=== PATIENT | female | born 1970 | race Caucasian/White ===

== ENCOUNTER 2020-09-04 14:16 | Emergency (ER) | payer BC, OTHER ==
[~2020-09-04] VITALS: Ht 167.6 cm; Wt 80.7 kg
[~2020-09-04 14:16] MED LIST: Carisoprodol PO; Cholecalciferol PO
[2020-09-04 15:33] VITALS: BP 125/77
[2020-09-04] MEDS ORDERED: METHOCARBAMOL 500 MG TAB PO ONE (15:45)
[2020-09-04 16:57] LABS: Urine WBC None Seen /hpf (0 - 5)
[2020-09-04 17:03] LABS: Urine Bacteria NONE SEEN /hpf (None Seen); Urine Blood Negative /uL (Negative); Urine Specific Gravity 1.018 (1.001-1.035)
[2020-09-04] MEDS ORDERED: KETOROLAC TROMETH 60MG/2ML VIAL IM ONE (17:15)
[2020-09-04 17:21] LABS: Basophils # (auto) 0 10 ^3/uL (0-0.2); Basophils % (auto) 0.6 % (0.0-2.0); Eosinophils # (auto) 0.2 10 ^3/uL (0-0.8); Eosinophils % (auto) 2.7 % (0.0-7.0); Hematocrit 37.5 % (36.0-46.0); Hemoglobin 13.1 g/dL (12.2-16.2); Lymphocytes # (auto) 2.3 10 ^3/uL (0.4-5.4); Lymphocytes % (auto) 29.4 % (10.0-50.0); Mean Corpuscular Hemoglobin 31.6 pg (28.0-32.0); Mean Corpuscular Hgb Conc. 34.8 g/dL (32.0-36.0); Mean Corpuscular Volume 90.8 fL (80.0-100.0); Monocytes # (auto) 0.6 10 ^3/uL (0-1.3); Monocytes % (auto) 7.2 % (0.0-12.0); Neutrophils # (auto) 4.7 10 ^3/uL (1.6-8.6); Neutrophils % (auto) 60.1 % (37.0-80.0); Nucleated Red Blood Cells % 0.1 %; Platelet Count (auto) 268 10^3/uL (140-450); Red Blood Cells 4.13 10^6/uL (4.0-5.20); Red Cell Distribution Width 12.6 % (11.8-14.3); White Blood Cell 7.8 10^3/uL (4.4-10.8)
[2020-09-04 17:40] LABS: Albumin 3.5 g/dL (3.4-5.0); Calcium 8.7 mg/dL (8.5-10.1)
[2020-09-04 17:43] LABS: BUN/Creatinine Ratio 16.2
[2020-09-04 17:45] LABS: Bilirubin, Total 0.4 mg/dL (0.2-1.0); Total Protein 7.4 g/dL (6.4-8.2)
== END 2020-09-04 16:32 | disposition home or self-care (01) ==
LOC: ER 14:16
DX: M54.16 Radiculopathy, lumbar region (principal); Z90.710 Acquired absence of both cervix and uterus; Z88.0 Allergy status to penicillin; Z88.1 Allergy status to other antibiotic agents; Z88.8 Allergy status to other drugs, medicaments and biological substances; Z91.041 Radiographic dye allergy status; Z79.899 Other long term (current) drug therapy
CPT/HCPCS: 36415; 74176; 80053; 81001; 85025; 96372; 99284; J1885; 81002

== ENCOUNTER 2021-06-21 11:23 | Emergency (ER) | payer OTHER ==
[~2021-06-21] VITALS: Ht 167.6 cm; Wt 80.3 kg
[2021-06-21 11:59] VITALS: BP 141/91
[2021-06-21] MEDS ORDERED: KETOROLAC TROMETH 60MG/2ML VIAL IM ONE (12:15)
[2021-06-21] MEDS ORDERED: PRED20TA2 PO (12:51)
[2021-06-21] MEDS ORDERED: TRAM-297 PO (12:51)
== END 2021-06-21 12:56 | disposition home or self-care (01) ==
LOC: EDUNIT# 11:23 → ER 11:23
DX: M50.10 Cervical disc disorder with radiculopathy, unspecified cervical region (principal); Z90.710 Acquired absence of both cervix and uterus; Z98.51 Tubal ligation status; Z88.0 Allergy status to penicillin; Z88.2 Allergy status to sulfonamides; Z88.6 Allergy status to analgesic agent
CPT/HCPCS: 72040; 96372; 99283; J1885

== ENCOUNTER 2023-10-31 19:29 | Emergency (ER) | payer OTHER ==
[~2023-10-31] VITALS: Ht 167.6 cm; Wt 91.5 kg
[~2023-10-31 19:29] MED LIST changes: +PRED20TA2 PO; +TRAM-297 PO
[2023-10-31 21:54] VITALS: BP 147/85; PULSE 75; RESP 16; TEMP 97.8; O2SAT 98
[2023-10-31] MEDS: KETOROLAC TROMETH 60MG/2ML VIAL IM ONE (22:04)
[2023-10-31] MEDS ORDERED: IBUP-1456 PO (22:22)
== END 2023-10-31 23:08 | disposition home or self-care (01) ==
LOC: ER 19:29
DX: M47.22 Other spondylosis with radiculopathy, cervical region (principal); M25.531 Pain in right wrist; M19.90 Unspecified osteoarthritis, unspecified site; E66.01 Morbid (severe) obesity due to excess calories; Z68.32 Body mass index [BMI] 32.0-32.9, adult; Z90.710 Acquired absence of both cervix and uterus; Z79.899 Other long term (current) drug therapy; Z88.0 Allergy status to penicillin; Z88.2 Allergy status to sulfonamides; Z88.8 Allergy status to other drugs, medicaments and biological substances
CPT/HCPCS: 73110; 96372; 99283; J1885